=== PATIENT | male | born 1980 | race Caucasian/White ===

== ENCOUNTER 2019-12-26 08:40 | Emergency (ER) | payer MEDICARE, MEDICAID, SELFPAY ==
--- NOTE | ~2019-12-26 | XR_ITS ---
EXAMINATION: XR abdomen/kub 1V INDICATION: Abdominal pain, unable to urinate TECHNIQUE: Supine views of the abdomen were obtained on 2 radiographs. COMPARISON: None FINDINGS: The bowel gas pattern is normal. There are no dilated loops of bowel. The visualized osseou s structures are unremarkable. IMPRESSION: 1. No radiographic correlate for the patient's symptoms. Reviewed, dictated and finalized at location B.
[2019-12-26 09:02] VITALS: BP 143/80; PULSE 110; RESP 18; TEMP 36.1; O2SAT 99
--- NOTE | 2019-12-26 09:15 | ED.GENADULT ---
HPI - General Adult General Chief complaint: Urogenital-Male Stated complaint: burning/urinating Time Seen by Provider: 12/26/19 09:08 Source: patient, family (Family friend) and RN notes reviewed Mode of arrival: ambulatory Limitations: altered mental status History of Present Illness HPI narrative: 39-year-old male presents with complaints of dysuria and anuria for the past 18 hours. Karsten says he has not urinated since 15:00 on 12/25/19 and it was a dark tea color with a very slow stream. Dysuria consist of burning, decrease urine, and pain.? No treatment.? Denies fever or chills.? Denies nausea, vomiting, and abdominal pain.? No significant abdominal pain.? No genital discharge.? No concerns for STDs. Karsten denies being sexual active. No flank pain.? Exacerbating factors in ability to urinate and paplation of suprapubic and LT testicle.? Denies hematuria or genital bleeding.? Tolerating liquids well.? Remains active. Some parts of this dictation were generated by voice recognition software and may contain typographical and/or grammatical inaccuracies. Related Data Home Medications Medication Instructions Recorded Confirmed No Home Medications 12/26/19 12/26/19 Allergies Allergy/AdvReac Type Severity Reaction Status Date / Time nickel Allergy Rash Verified 12/26/19 09:16 Review of Systems Review of Systems: Narrative: CONSTITUTIONAL: Denies fever, chills, sweats. EYES: Denies visual changes, redness, discharge. ENT: Denies rhinorrhea, congestion, sore throat, otalgia. CARDIOVASCULAR: Denies chest pain, palpitations, edema. RESPIRATORY: Denies dyspnea, wheezing, cough GASTROINTESTINAL: Complains of suprapubic abdominal pain. Denies nausea, vomiting, diarrhea. GENITOURINARY: Complains of anuria and dysuria (burning, small amount, and urgency). Denies hematuria, abnormal discharge. SKIN: Denies rash or itching. MUSCULOSKELETAL: Denies acute back pain, joint pain, or myalgia. NEUROLOGIC: Denies numbness or focal weakness. PSYCHIATRIC: Denies anxiety or depression. All other systems reviewed are negative, except as documented in HPI and below. [facility] Past Medical History Medical History (Updated 12/26/19 @ 10:06 by ABBIE Aguero) No significant past medical history Surgical History Surgical History (Updated 12/26/19 @ 09:41 by ABBIE Aguero) History of shoulder surgery Right Family History Family History Father No problems noted. Mother No problems noted. Other Family history of alcoholism Family history of arthritis Hypertension Social History Social History (Updated 12/26/19 @ 10:05 by ABBIE Aguero) Smoking status: Never smoker Second hand tobacco smoke exposure: No Alcohol intake: current Substance use: never Gender identity (if verbalized by the patient): Male Comments At time of signature, agree with nurse past medical, surgical, social, and family history.? There is no relevant family history pertinent to the presenting complaint. Exam Narrative: Exam Narrative: GENERAL: This is a well-nourished, well-developed patient, in no apparent distress.? Talks in full sentences and ambulates with steady gait without dyspnea. HEAD: normocephalic, atraumatic. EYES: PERRL. Sclera clear/white. Vision is grossly intact. CARDIOVASCULAR: Regular rate and rhythm without murmurs, gallops, or rubs. RESPIRATORY: Clear to auscultation. Breath sounds equal bilaterally. No wheezes, rales, or rhonchi.? GASTROINTESTINAL: Abdomen soft, mild-moderate tenderness to suprapubic area, with mild bladder distended. Bowel sounds are active. No hepato-splenomegaly, or palpable masses. No guarding. GENITOURINARY: LT testicle lower than RT one, moderate tenderness on palpation and manipulation. Male genitalia normal without lesions. No discharge noted. Scrotum with no masses, swelling, dis
--- NOTE | 2019-12-26 09:16 | PC.NURSE ---
0908- Pt unable to produce urine sample
--- NOTE | 2019-12-26 09:30 | PC.NURSE ---
0930- Pt unable to provide specimen. Urine order canceled.
== END 2019-12-26 09:35 | disposition short-term general hospital (02) ==
PROVIDERS: Emergency Provider Nurse Practitioner Family
DX: R33.9 Retention of urine, unspecified (principal)
CPT/HCPCS: 74018; 99213; G0463

== ENCOUNTER 2019-12-26 10:00 | Emergency (ER) | payer MEDICARE, MEDICAID, SELFPAY ==
--- NOTE | ~2019-12-26 | US_ITS ---
EXAMINATION: US scrotum doppler DATE: 12/26/2019 11:17 INDICATION: Left testicular pain TECHNIQUE: Testicular sonogram utilizing grayscale and Doppler COMPARISON: None. FINDINGS: The right testis measures 4.3 x 1.9 x 3.1 cm. The left testis measures 4.6 x 2.1 x 3.1 cm. There is normal vascular flow to both testes. The right epididymis contains a 3 mm cyst or spermatoce le. The left epididymis is normal with normal vascular flow. There is no varicocele or hydrocele. IMPRESSION: 1. No sonographic correlate for the patient's symptoms. Reviewed, dictated and finalized at location B.
--- NOTE | 2019-12-26 10:08 | ED.MALEGU ---
HPI - Male Genitourinary General Chief complaint: Urogenital-Male Stated complaint: testicle swelling Time Seen by Provider: 12/26/19 10:08 History of Present Illness HPI Narrative: 39 yo male with h/o intellectual disability present c/o urianry difficulty since last night. When he urinated last night it was reportedly brown in color and burned. He has felt the urge to go since that time, but has not been able to produce any more urine. He does report some abdominal discomfort for the past few days with decreased appetite. He was seen at urgent care and they were concerned about tenderness in the left testicle, so they sent him here for further evaluation. History limited by intellectual disability. Related Data Allergies Allergy/AdvReac Type Severity Reaction Status Date / Time nickel Allergy Rash Verified 12/26/19 10:14 Review of Systems Review of Systems: All systems reviewed & are unremarkable except as noted in HPI and below Constitutional: Constitutional: Denies body ache(s) Eyes: Eyes: Reports no additional eye complaints ENT: Reports system reviewed and no additional complaints, except as documented Cardiovascular: Cardiovascular: Reports no additional cardiovascular complaints Respiratory: Respiratory: Reports no additional respiratory complaints Gastrointestinal: Gastrointestinal: Reports abdominal pain Genitourinary: Genitourinary: Reports oliguria, Denies penile discharge and Reports testicular pain Musculoskeletal: Musculoskeletal: Reports no additional musculoskeletal complaints Neurologic: Reports system reviewed and no additional complaints, except as documented PMFSH Past Medical History Medical History No significant past medical history Surgical History Surgical History History of shoulder surgery Right Family History Family History (Updated 12/26/19 @ 10:06 by ABBIE Aguero) Father No problems noted. Mother No problems noted. Other Family history of alcoholism Family history of arthritis Hypertension Social History Social History Smoking status: Never smoker Second hand tobacco smoke exposure: No Alcohol intake: current Substance use: never Gender identity (if verbalized by the patient): Male Exam Const: General: cooperative and alert; No acute distress Nutritional Appearance: well nourished HENMT: Face and sinus: dry mucous membranes Teeth and gingiva: other (endentulous) Resp: Effort & Inspection: normal respiratory effort Auscultation: clear to auscultation bilaterally Cardio: Rate: regular rate and bradycardic GI: GI Palp: No abdominal tenderness : Male General Exam: Yes normal external exam Scrotum: no scrotal swelling Testes: testicular tenderness on the left (mild) Skin: General skin exam: normal color Neuro: General: patient oriented x3 Speech: normal speech Extrem: General: normal to inspection Course Vital Signs Vital signs: Vital Signs Temperature 36.7 C 12/26/19 10:09 Pulse Rate 84 12/26/19 10:09 Respiratory Rate 18 12/26/19 10:09 Blood Pressure 137/86 12/26/19 10:09 Pulse Oximetry 98 12/26/19 10:09 Temperature 36.7 C 12/26/19 10:09 Pulse Rate 84 12/26/19 10:09 Respiratory Rate 18 12/26/19 10:09 Blood Pressure 137/86 12/26/19 10:09 Pulse Oximetry 98 12/26/19 10:09 MDM - Male Genitourinary MDM Narrative Medical decision making narrative: No abnormalities seen on US. UA does not clearly indicate UTI, but he does have significant bacteria on a cathed specimen and he continues to have burning with urination. I will treat this as a UTI and have him follow-up for ongoing symptoms. Differential Diagnosis Differential diagnosis: Likely urinary tract infection, epididymitis and
[2019-12-26 10:09] VITALS: BP 137/86; PULSE 84; RESP 18; TEMP 36.7; O2SAT 98
--- NOTE | 2019-12-26 10:30 | PC.NURSE ---
Pt's bladder scanned for urine prior to straight cath, reports >350cc x 3 scans.
[2019-12-26] MEDS: SODIUM CHLORIDE 0.9% IV 1,000 ML 999 ML IV CONT ×2 (10:51→12:15)
[2019-12-26 10:55] LABS: Basophils Absolute Auto 0.1 K/mm3 (0.0-0.1); Basophils Percent Auto 0.5 % (0.2-1.2); Eosinophils Absolute Auto 0.2 K/mm3 (0-0.3); Eosinophils Percent Auto 1.7 % (0-4.4); Hematocrit 45.9 % (42.0-52.0); Hemoglobin 15.6 g/dL (14.0-18.0); Immature Granulocyte Absolute 0.06 K/mm3 (0.00-0.031); Immature Granulocyte Percent A 0.5 % (0-0.5); Lymphocytes Percent Auto 10.5 % (18.3-44.2); Mean Corpuscular Hemoglobin 29.4 pg (26-34); Mean Corpuscular Volume 86.4 fl (80-100); Mean Platelet Volume 10.6 fl (7.4-10.4); Monocytes Absolute Auto 0.9 K/mm3 (0.1-0.6); Monocytes Percent Auto 8.2 % (2.6-8.5); Neutrophils Percent Auto 78.6 % (45.5-73.1); Platelet Count Result 205 k/mm3 (150-375); Red Blood Count 5.31 M/mm3 (4.6-6.20); Red Cell Distribution Width 12.6 % (11.5-14.5); White Blood Count 11.4 K/mm3 (4.5-10.0)
--- NOTE | 2019-12-26 10:55 | PC.NURSE ---
Pt to ultrasound via stretcher.
[2019-12-26 10:57] LABS: Appearance Urine Cloudy (Clear); Bilirubin Urine Negative (Negative); Blood Urine Negative (Negative); Color Urine Yellow (Yellow); Glucose Urine UA Negative (Negative); Ketones Urine 1+ mg/dL (Negative); Leukocyte Esterase Ur Negative LEU/UL (Negative); Nitrate Urine Negative (Negative); Protein Urine 1+ mg/dL (Negative); Specific Grav Ur >= 1.030 (1.001-1.035)
[2019-12-26 11:01] LABS: Add Urine Microscopic? YES; Amorphous Sediment Urine Moderate; Bacteria Urine 1+ /hpf; Mucus Urine Rare /lpf; RBC Urine 0-2 /hpf (0-2); Squamous Epithelial Cell Urine Rare /hpf (Few); WBC Urine 0-3 /hpf
[2019-12-26 11:12] LABS: Alanine Aminotransferase 14 U/L (4-50); Albumin Level 4.3 g/dL (3.5-5.1); Alkaline Phosphatase 49 U/L (38-126); Aspartate Amino Transferase 20 U/L (17-59); Bilirubin,Total 0.7 mg/dL (0.2-1.3); Blood Urea Nitrogen 10 mg/dL (9-20); Calcium 9.3 mg/dL (8.4-10.2); Carbon Dioxide 25 mmol/L (22-30); Chloride 107 mmol/L (98-107); Estimated CRCL calculation 96 ml/min; Estimated Glomerular Filt Rate > 60; Glucose 91 mg/dL (75-110); Potassium 3.8 mmol/L (3.4-5.0); Sodium 138 mmol/L (137-145)
--- NOTE | 2019-12-26 11:33 | PC.NURSE ---
Report to GHULAM Donato, to continue care.
[2019-12-26] MEDS: PHENAZOPYRIDINE HCL 100 MG TABLET 200 MG PO (12:14)
[2019-12-26 14:23] VITALS: BP 129/79; PULSE 81; RESP 17; O2SAT 99
--- NOTE | 2020-01-04 12:02 | PC.NURSE ---
LATE ENTRY This note is being entered to document information to the patient's record. The following information was omitted on [12/26/19], by [Carlos Delatorre]. ns start 1215 end 1310 Levoflaxin start 1321 end 1458
== END 2019-12-26 14:24 | disposition home or self-care (01) ==
PROVIDERS: Emergency Provider Emergency Medicine
DX: N39.0 Urinary tract infection, site not specified (principal); R33.9 Retention of urine, unspecified; N50.812 Left testicular pain
CPT/HCPCS: 36415; 51701; 74018; 76870; 80053; 81001; 85025; 93976; 96361; 96365; 99284; A9270; J1956; J7030

== ENCOUNTER 2020-04-27 19:10 | Emergency (ER) | payer MEDICARE, MEDICAID, SELFPAY ==
[2020-04-27 19:13] VITALS: BP 117/71; PULSE 93; RESP 20; TEMP 37.1; O2SAT 100
--- NOTE | 2020-04-27 19:43 | ED.ABDPAIN ---
HPI - Abdominal Pain General Chief Complaint: Abdominal Pain Stated Complaint: abd pain Time Seen by Provider: 04/27/20 19:36 Source: patient History of Present Illness HPI narrative: Patient complaining of a lump at the right lower abdomen started 2 days ago. Patient denies any fever, chills, nausea, vomiting. Related Data Allergies Allergy/AdvReac Type Severity Reaction Status Date / Time nickel Allergy Rash Verified 12/26/19 10:14 Review of Systems Review of Systems: Narrative: CONSTITUTIONAL: Denies fever, chills, or sweats. EYES: Denies visual changes, redness, or discharge. ENT: Denies rhinorrhea, congestion, sore throat, or otalgia. CARDIOVASCULAR: Denies chest pain, palpitations, or edema. RESPIRATORY: Denies cough or dyspnea. GASTROINTESTINAL: Denies abdominal pain, nausea, vomiting, or diarrhea. GENITOURINARY: Denies dysuria or hematuria. SKIN: Denies rash or itching. MUSCULOSKELETAL: Denies back pain, joint pain, or myalgia. NEUROLOGIC: Denies headache, numbness, or weakness. PSYCHIATRIC: Denies anxiety or depression. PMFSH Past Medical History Medical History No significant past medical history Surgical History Surgical History History of shoulder surgery Right Family History Family History Father No problems noted. Mother No problems noted. Other Family history of alcoholism Family history of arthritis Hypertension Social History Social History Smoking status: Never smoker Second hand tobacco smoke exposure: No Alcohol intake: current Substance use: never Gender identity (if verbalized by the patient): Male Exam Narrative: Exam Narrative: General appearance: Well-developed, well-nourished Skin: Normal color. An abscess-like lesion 4 x 3 cm at the right lower abdomen, erythematous, diffusely tender, positive fluctuation Head: Normocephalic, nontraumatic Eyes: Clear conjunctiva ENT: Oropharynx normal, ears normal, nose normal Neck: Supple, nontender Chest and respiratory: Airway patent, no respiratory distress, no accessory muscle use Heart: Regular rate/rhythm Abdomen: Soft, nontender, no organomegaly, quiet bowel sounds Vascular: Normal peripheral pulses, normal capillary refill. Musculoskeletal: Normal range of motion, nontender back Neurologic: Alert and oriented ?3, STORE MANAGER is normal as tested, no gross motor deficit Procedures Abscess I/D Right lower abdomen: Date of Incision: 04/27/20 Time of Incision: 20:16 Side (if applicable): right Local Anesthetic: lidocaine 1% and with epi Amount of anesthesia used (mL): 5 Technique: incised with #11 blade and probed loculations Amount of fluid expressed (mL): 25 Irrigation: Yes Packing used?: iodoform I&D Results: Pus Complications: pain Course Course Emergency Course: Stable Vital Signs Vital signs: Vital Signs Temperature 37.1 C 04/27/20 19:13 Pulse Rate 93 04/27/20 19:13 Respiratory Rate 04/27/20 19:13 Blood Pressure 117/71 04/27/20 19:13 Pulse Oximetry 100 04/27/20 19:13 Temperature 37.1 C 04/27/20 19:13 Pulse Rate 93 04/27/20 19:13 Respiratory Rate 04/27/20 19:13 Blood Pressure 117/71 04/27/20 19:13 Pulse Oximetry 100 04/27/20 19:13 MDM - Abdominal Pain MDM Narrative Medical decision making narrative: Right lower abdomen abscess. The plan is incision and drainage. Critical Care Time
[2020-04-27 20:35] VITALS: BP 125/71; PULSE 96; RESP 18; O2SAT 98
== END 2020-04-27 20:37 | disposition home or self-care (01) ==
PROVIDERS: Emergency Provider Emergency Medicine
DX: L02.211 Cutaneous abscess of abdominal wall (principal)
CPT/HCPCS: 10061; 87070; 87205; 99283

== ENCOUNTER 2020-08-11 15:34 | Emergency (ER) | payer MEDICARE, MEDICAID, SELFPAY ==
--- NOTE | ~2020-08-11 | CT_ITS ---
EXAMINATION: CT abdomen pelvis w con DATE: 08/11/2020 18:01 INDICATION: Low abdominal pain. TECHNIQUE: Computed tomography (CT) of the abdomen and pelvis was performed with 100 mL Omnipaque 350 intravenous contrast. Automated exposure control and iterative reconstruction technique were employe d. The dose-length product was 179.14 mGy-cm. COMPARISON: None. FINDINGS: The visualized portions of the lung bases are clear without pneumonia or pleural effusion. The heart size is normal. No pericardial effusion. The liver, gallbladder, spleen, pancreas, adrenal glands, and kidneys are normal. There are no dilated loops of bowel. The appendix is normal. There ar e no pathologically enlarged lymph nodes. There is no free intraperitoneal fluid. The bladder is deco mpressed by a Maria catheter. There is mild lumbar spondylosis. IMPRESSION: 1. No etiology for the patient's symptoms. Reviewed, dictated and finalized at location A. TTING MANAGER
[2020-08-11 15:36] VITALS: BP 145/91; PULSE 111; RESP 18; TEMP 36.3; O2SAT 97
[2020-08-11 16:01] LABS: Basophils Absolute Auto 0.1 K/mm3 (0.0-0.1); Basophils Percent Auto 0.6 % (0.2-1.2); Eosinophils Absolute Auto 0.2 K/mm3 (0-0.3); Eosinophils Percent Auto 1.7 % (0-4.4); Hematocrit 46.9 % (42.0-52.0); Hemoglobin 16.1 g/dL (14.0-18.0); Immature Granulocyte Absolute 0.05 K/mm3 (0.00-0.031); Immature Granulocyte Percent A 0.5 % (0-0.5); Lymphocytes Absolute Auto 2.05 K/mm3 (0.9-3.2); Lymphocytes Percent Auto 18.6 % (18.3-44.2); Mean Corpuscular HGB Conc 34.3 g/dl (32-36); Mean Corpuscular Hemoglobin 30.6 pg (26-34); Mean Corpuscular Volume 89.2 fl (80-100); Mean Platelet Volume 9.9 fl (7.4-10.4); Monocytes Absolute Auto 1.1 K/mm3 (0.1-0.6); Monocytes Percent Auto 9.9 % (2.6-8.5); Neutrophils Absolute Auto 7.6 K/mm3 (1.3-6.7); Neutrophils Percent Auto 68.7 % (45.5-73.1); Platelet Count Result 257 k/mm3 (150-375); Red Blood Count 5.26 M/mm3 (4.6-6.20); Red Cell Distribution Width 12.8 % (11.5-14.5)
[2020-08-11 16:11] LABS: Alanine Aminotransferase 18 U/L (4-50); Albumin Level 4.4 g/dL (3.5-5.1); Alkaline Phosphatase 62 U/L (38-126); Anion Gap 7 mmol/L (8-16); Aspartate Amino Transferase 23 U/L (17-59); Bilirubin,Total 0.4 mg/dL (0.2-1.3); Blood Urea Nitrogen 7 mg/dL (9-20); Calcium 9.4 mg/dL (8.4-10.2); Carbon Dioxide 25 mmol/L (22-30); Chloride 106 mmol/L (98-107); Estimated CRCL calculation 87 ml/min; Estimated Glomerular Filt Rate > 60; Glucose 109 mg/dL (75-110); Lipase 54 U/L (23-300); Potassium 3.9 mmol/L (3.4-5.0); Sodium 138 mmol/L (137-145)
[2020-08-11 17:38] LABS: Add Urine Microscopic? NO; Appearance Urine Clear (Clear); Bilirubin Urine Negative (Negative); Blood Urine Negative (Negative); Color Urine Yellow (Yellow); Glucose Urine UA Negative (Negative); Ketones Urine Negative (Negative); Leukocyte Esterase Ur Negative LEU/UL (Negative); Nitrate Urine Negative (Negative); Protein Urine Negative (Negative); Specific Grav Ur 1.015 (1.001-1.035); Urobilinogen Urine Negative mg/dL (<2.0)
--- NOTE | 2020-08-11 17:57 | ED.ABDPAIN ---
HPI - Abdominal Pain General Chief Complaint: Abdominal Pain Stated Complaint: abdominal pain/difficulty urinating Time Seen by Provider: 08/11/20 16:21 Source: patient Limitations: no limitations History of Present Illness HPI narrative: 39 years old white male presents with lower abdominal pain started yesterday associated with trouble to urinate. Patient reports last urination was yesterday. Patient denies any fever, chills, nausea, vomiting, diarrhea, constipation, exposure to anybody known having COVID-19. Patient also denies any respiratory symptoms. Patient wearing depends Related Data Home Medications Medication Instructions Recorded Confirmed No Home Medications 08/11/20 08/11/20 Allergies Allergy/AdvReac Type Severity Reaction Status Date / Time nickel Allergy Rash Verified 08/11/20 15:40 Review of Systems Review of Systems: Narrative: CONSTITUTIONAL: Denies fever, chills, or sweats. EYES: Denies visual changes, redness, or discharge. ENT: Denies rhinorrhea, congestion, sore throat, or otalgia. CARDIOVASCULAR: Denies chest pain, palpitations, or edema. RESPIRATORY: Denies cough or dyspnea. GASTROINTESTINAL: Complaining of abdominal pain and difficulty urinating GENITOURINARY: Denies dysuria or hematuria. SKIN: Denies rash or itching. MUSCULOSKELETAL: Denies back pain, joint pain, or myalgia. NEUROLOGIC: Denies headache, numbness, or weakness. PSYCHIATRIC: Denies anxiety or depression. [facility] Past Medical History Medical History (Updated 08/11/20 @ 18:50 by Papito August MD) No significant past medical history Surgical History Surgical History History of abdominal abscess I & D of Right Lower Abdomen. 04/27/2020 History of shoulder surgery Right Family History Family History Father No problems noted. Mother No problems noted. Other Family history of alcoholism Family history of arthritis Hypertension Social History Social History Smoking status: Current every day smoker Tobacco type: cigarettes Second hand tobacco smoke exposure: No Alcohol intake: current Substance use: never Gender identity (if verbalized by the patient): Male Exam Narrative: Exam Narrative: General appearance: Well-developed, well-nourished Skin: Normal color, chronic eczematous changes of the lower abdomen Head: Normocephalic, nontraumatic Eyes: Clear conjunctiva ENT: Oropharynx normal, ears normal, nose normal Neck: Supple, nontender Chest and respiratory: Airway patent, no respiratory distress, no accessory muscle use Heart: Regular rate/rhythm Abdomen: Soft, diffuse tenderness lower abdomen, no organomegaly, quiet bowel sounds Vascular: Normal peripheral pulses, normal capillary refill. Musculoskeletal: Normal range of motion, nontender back Neurologic: Alert and oriented ?3, Course Course Emergency Course: Stable Vital Signs Vital signs: Vital Signs Temperature 36.3 C L 08/11/20 15:36 Pulse Rate 111 H 08/11/20 15:36 Respiratory Rate 18 08/11/20 15:36 Blood Pressure 145/91 H 08/11/20 15:36 Pulse Oximetry 97 08/11/20 15:36 Temperature 36.3 C L 08/11/20 15:36 Pulse Rate 111 H 08/11/20 15:36 Respiratory Rate 18 08/11/20 15:36 Blood Pressure 145/91 H 08/11/20 15:36 Pulse Oximetry 97 08/11/20 15:36 MDM - Abdominal Pain MDM Narrative Medical decision making narrative: Lower abdominal pain, trouble urinating. Labs, IV fluid, CT abdomen and pelvis with IV contrast, ordered. Further plan to
[2020-08-11 18:45] VITALS: BP 150/89; PULSE 90; RESP 20; O2SAT 98
--- NOTE | 2020-08-11 19:01 | PC.NURSE ---
pt refuses to keep indwelling canales. wants canales d/c prior to d/c to home. notified.
== END 2020-08-11 19:08 | disposition home or self-care (01) ==
PROVIDERS: Emergency Medicine; Emergency Provider Emergency Medicine
DX: R33.9 Retention of urine, unspecified (principal); F17.210 Nicotine dependence, cigarettes, uncomplicated
CPT/HCPCS: 36415; 51702; 74177; 80053; 81003; 83690; 85025; 99284; Q9967

== ENCOUNTER 2020-09-20 22:44 | Emergency (ER) | payer MEDICARE, MEDICAID, SELFPAY ==
--- NOTE | ~2020-09-20 | CT_ITS ---
EXAMINATION: CT abdomen pelvis wo con DATE: 09/21/2020 01:13 INDICATION: Lower abdominal pain TECHNIQUE: Computed tomography (CT) of the abdomen and pelvis was performed without intravenous contr ast. The dose-length product was 170.91 mGy-cm. Automated exposure control and iterative reconstructi on technique were employed. COMPARISON: CT dated 08/11/2020. FINDINGS: Heart size is normal. No significant pleural or pericardial effusion. Moderate gas througho ut the colon. No significant small bowel dilation. No significant vascular abnormality. No lymphadeno yovani. Bladder is underdistended, although there is possible mild bladder wall thickening. The liver, spleen, pancreas, adrenal glands and kidneys are unremarkable. No free air or free fluid. No lymphadenopathy. Mild levocurvature of the lumbar spine. IMPRESSION: 1. Possible mild thickening of the bladder wall versus underdistention. Consider cystitis in the appr opriate clinical setting. Reviewed, dictated and finalized at location A. TANK TENDER IMPRESSION: 1. Possible mild thickening of the bladder wall versus underdistention. Conside r cystitis in the appropriate clinical setting.
[2020-09-20 22:49] VITALS: BP 148/91; PULSE 98; RESP 18; TEMP 36.7; O2SAT 98
[2020-09-20 23:56] LABS: Basophils Absolute Auto 0.1 K/mm3 (0.0-0.1); Basophils Percent Auto 0.6 % (0.2-1.2); Eosinophils Absolute Auto 0.2 K/mm3 (0-0.3); Eosinophils Percent Auto 1.6 % (0-4.4); Hemoglobin 16.2 g/dL (14.0-18.0); Immature Granulocyte Absolute 0.05 K/mm3 (0.00-0.031); Immature Granulocyte Percent A 0.4 % (0-0.5); Lymphocytes Absolute Auto 1.95 K/mm3 (0.9-3.2); Lymphocytes Percent Auto 16.3 % (18.3-44.2); Mean Corpuscular HGB Conc 34.5 g/dl (32-36); Mean Corpuscular Hemoglobin 29.9 pg (26-34); Mean Corpuscular Volume 86.7 fl (80-100); Mean Platelet Volume 9.7 fl (7.4-10.4); Monocytes Absolute Auto 1.3 K/mm3 (0.1-0.6); Monocytes Percent Auto 10.7 % (2.6-8.5); Neutrophils Absolute Auto 8.5 K/mm3 (1.3-6.7); Neutrophils Percent Auto 70.4 % (45.5-73.1); Platelet Count Result 243 k/mm3 (150-375); Red Blood Count 5.42 M/mm3 (4.6-6.20); Red Cell Distribution Width 12.6 % (11.5-14.5)
[2020-09-21 00:10] LABS: Anion Gap 11 mmol/L (8-16); Blood Urea Nitrogen 13 mg/dL (9-20); Calcium 9.7 mg/dL (8.4-10.2); Carbon Dioxide 24 mmol/L (22-30); Chloride 103 mmol/L (98-107); Estimated CRCL calculation 91 ml/min; Estimated Glomerular Filt Rate > 60; Glucose 111 mg/dL (75-110); Potassium 3.9 mmol/L (3.4-5.0); Sodium 138 mmol/L (137-145)
[2020-09-21 00:55] LABS: Add Urine Microscopic? YES; Appearance Urine Clear (Clear); Bacteria Urine Trace /hpf; Bilirubin Urine Negative (Negative); Blood Urine Negative (Negative); Color Urine Yellow (Yellow); Glucose Urine UA Negative (Negative); Ketones Urine Trace mg/dL (Negative); Leukocyte Esterase Ur Negative LEU/UL (Negative); Mucus Urine Rare /lpf; Nitrate Urine Negative (Negative); Protein Urine 2+ mg/dL (Negative); Specific Grav Ur 1.029 (1.001-1.035); WBC Urine 0-3 /hpf
--- NOTE | 2020-09-21 01:40 | ED.GENADULT ---
HPI - General Adult General Chief complaint: Urogenital-Male Stated complaint: Testicle pain, urinary symptoms Time Seen by Provider: 09/20/20 23:38 Source: RN notes reviewed History of Present Illness HPI narrative: Patient presents emergency department from home for difficulty urinating. Patient states he has had difficulty urinating since yesterday. He states is associated with a burning sensation. Patient states it feels like fire ants start from the tip of his penis moved up into his lower abdomen. He denies any fevers or chills nausea vomiting diarrhea or any other symptoms. Patient states he has had problems with difficulty urinating before in the past patient states pain radiates into the penile region and scrotum but denies any testicular pain. Patient denies any recent sexual intercourse and denies risk of sexually-transmitted disease Related Data Allergies Allergy/AdvReac Type Severity Reaction Status Date / Time nickel Allergy Rash Verified 09/20/20 22:52 Review of Systems Review of Systems: Narrative: Gen.: Denies fevers or chills ENT: Denies congestion Respiratory: Denies shortness of breath or cough CV: Denies chest pain or palpitations GI: Denies abdominal pain nausea, emesis or diarrhea GI Musculoskeletal: Denies back pain or muscle pain Neuro: Denies numbness, tingling, weakness or focal weakness Skin: Denies rash Except as documented, all other systems reviewed and negative [facility] Past Medical History Medical History (Updated 09/21/20 @ 03:19 by Smith Tena DO) No significant past medical history Surgical History Surgical History History of abdominal abscess I & D of Right Lower Abdomen. 04/27/2020 History of shoulder surgery Right Family History Family History Father No problems noted. Mother No problems noted. Other Family history of alcoholism Family history of arthritis Hypertension Social History Social History Smoking status: Current every day smoker Tobacco type: cigarettes Second hand tobacco smoke exposure: No Alcohol intake: current Substance use: never Gender identity (if verbalized by the patient): Male Exam Narrative: Exam Narrative: APPEARANCE: No acute distress, nontoxic, resting in bed EYES: EOMI HEENT: Normocephalic, atraumatic, OMM RESPIRATORY: No respiratory distress Clear to auscultation bilaterally with no rhonchi wheezing or rales. CARDIOVASCULAR: Regular rate and rhythm without murmurs rubs or gallops. ABDOMINAL: Soft, nontender, nondistended, no rebound or guarding : Normal external exam there is a small sebaceous cyst at the base of the left penile shaft there is no swelling or erythema of the scrotum bilateral testicles are nontender to palpation no phimosis paraphimosis MUSCULOSKELETAl: Moves all extremities. No clubbing, cyanosis or edema. NEURO: Awake and alert. Following commands, speech normal, no focal deficits SKIN:: Warm, dry. The right lower abdomen has a erythematous rash with some healing scabbed over wounds as well as several small vesicles but does not cross the midline suspect component of shingles PSYCHIATRIC: Normal affect/mood, Course Course Emergency Course: Patient is straight cath in the emergency department with approximately 500 mL out. Discussed with patient the need for Maria catheter and the patient is refusing at this time. We did discuss the risks and benefits including bladder perforation cardiopulmonary arrest sepsis and patient continues to refuse refusal form signed out Reviewed old records the patient is had similar complaints before in the past has refused Maria catheter before in the past Discussed with patient results of workup and diagnosis. Discussed need for follow-up with primary care, proper use of m
[2020-09-21] MEDS: IBUPROFEN 600 MG TABLET PO (01:56)
[2020-09-21 04:00] VITALS: BP 126/69; PULSE 85; RESP 18; O2SAT 99
[2020-09-21] MEDS: valACYclovir HCL 500 MG TABLET 1000 MG PO (04:16)
== END 2020-09-21 04:21 | disposition home or self-care (01) ==
PROVIDERS: Emergency Provider Emergency Medicine; PCP Registered Nurse
DX: R33.9 Retention of urine, unspecified (principal); B01.9 Varicella without complication; F17.210 Nicotine dependence, cigarettes, uncomplicated
CPT/HCPCS: 36415; 74176; 80048; 81001; 85025; 99284; A9270

== ENCOUNTER 2021-04-13 20:57 | Emergency (ER) | payer MEDICARE, MEDICAID, SELFPAY ==
--- NOTE | ~2021-04-13 | CT_ITS ---
EXAMINATION: CT abdomen pelvis wo con DATE: 04/13/2021 23:23 INDICATION: Flank pain. Urinary retention. TECHNIQUE: Computed tomography (CT) of the abdomen and pelvis was performed without intravenous contr ast. Automated exposure control and iterative reconstruction technique were employed. The dose-length product was 158.80 mGy-cm. COMPARISON: 09/21/2020 FINDINGS: Lung bases are clear. No pericardial or pleural effusion. Liver, gallbladder, spleen, pancreas, bilat eral adrenal glands and kidneys are normal. No urolithiasis or hydronephrosis. Bowels including the a ppendix are normal. There is a Maria catheter in the bladder which demonstrates a moderately thickene d wall. No free intraperitoneal gas or fluid. No pathologically enlarged abdominal or pelvic lymphade nopathy. Transitional L5 segment, sacralized on the right with severely narrowed, likely developmenta lly underdeveloped L5-S1 disc space. IMPRESSION: 1. Again seen is diffuse moderate bladder wall thickening likely related to cystitis either acute or chronic. Correlate with urinalysis. Reviewed, dictated and finalized at location A. IMPRESSION: 1. Again seen is diffuse moderate bladder wall thickening likely related to cys titis either acute or chronic. Correlate with urinalysis.
[2021-04-13 21:49] VITALS: BP 155/100; PULSE 96; RESP 18; TEMP 36.6; O2SAT 96
[2021-04-13 22:24] LABS: Add Urine Microscopic? YES; Appearance Urine Clear (Clear); Bacteria Urine Trace /hpf; Bilirubin Urine Negative (Negative); Blood Urine Negative (Negative); Color Urine Yellow (Yellow); Glucose Urine UA Negative (Negative); Ketones Urine Negative (Negative); Leukocyte Esterase Ur Negative LEU/UL (Negative); Mucus Urine Rare /lpf; Nitrate Urine Negative (Negative); Protein Urine 1+ mg/dL (Negative); RBC Urine 0-2 /hpf (0-2); Specific Grav Ur 1.015 (1.001-1.035); Urobilinogen Urine Negative mg/dL (<2.0); WBC Urine 0-3 /hpf
--- NOTE | 2021-04-13 22:33 | ED.GENADULT ---
HPI - General Adult General Chief complaint: Urogenital-Male Stated complaint: urinary retention x 12 hours Time Seen by Provider: 04/13/21 22:14 History of Present Illness HPI narrative: Patient 40-year-old gentleman who presents the emergency department with chief complaint of urinary retention. Patient reports that he had noticed yesterday that he had decreased urine output and he has diaper the patient states that today he attempted to drink beer and smoke weed all day and then noticed that he was not able to urinate. Patient came to the emergency department saying that he felt pressure in the suprapubic region. The patient was found to have urinary retention on bladder scanner and a Maria catheter was placed. The patient reports he feels much better now Related Data Home Medications Medication Instructions Recorded Confirmed No Home Medications 04/13/21 04/13/21 Allergies Allergy/AdvReac Type Severity Reaction Status Date / Time nickel Allergy Rash Verified 04/13/21 22:34 Review of Systems Review of Systems: A 10 system review of systems was completed on the patient and is negative except for what is stated in the HPI. Nursing and ancillary documentation was reviewed. [facility] Past Medical History Medical History (Updated 04/13/21 @ 22:37 by Kit Alvarez MD) No significant past medical history Surgical History Surgical History History of abdominal abscess I & D of Right Lower Abdomen. 04/27/2020 History of shoulder surgery Right Family History Family History Father No problems noted. Mother No problems noted. Other Family history of alcoholism Family history of arthritis Hypertension Social History Social History Smoking status: Current every day smoker Tobacco type: cigarettes Second hand tobacco smoke exposure: No Alcohol intake: current Substance use: never Gender identity (if verbalized by the patient): Male Sexual Orientation (if Verbalized by the Patient): Straight or Heterosexual Exam Narrative: GENERAL: Well-appearing, well-nourished, and in no acute distress. HEAD: Normocephalic, atraumatic. EYES: PERRLA and EOMI. ENT: Nares clear, no rhinorrhea or epistaxis. Mucous membranes moist. NECK: Supple. CHEST: Clear to auscultation. No respiratory distress. HEART: Regular rate and rhythm. No murmur heard. Normal peripheral pulses. ABDOMEN: Soft, nontender, nondistended, normal active bowel sounds. EXTREMITIES: Normal range of motion. No edema. SKIN: Warm, dry, no rash. NEURO: No focal deficits. Alert and oriented x3. PSYCH: Normal mood and affect. Course Vital Signs Vital signs: Vital Signs Temperature 36.6 C 04/13/21 21:49 Pulse Rate 96 04/13/21 21:49 Respiratory Rate 18 04/13/21 21:49 Blood Pressure 155/100 H 04/13/21 21:49 Pulse Oximetry 96 04/13/21 21:49 Temperature 36.6 C 04/13/21 21:49 Pulse Rate 96 04/13/21 21:49 Respiratory Rate 18 04/13/21 21:49 Blood Pressure 155/100 H 04/13/21 21:49 Pulse Oximetry 96 04/13/21 21:49 Medical Decision Making Vital Signs Vital Signs: Vital Signs Temperature 36.6 C 04/13/21 21:49 Pulse Rate 96 04/13/21 21:49 Respiratory Rate 18 04/13/21 21:49 Blood Pressure 155/100 H 04/13/21 21:49 Pulse Oximetry 96 04/13/21 21:49 Temperature 36.6 C 04/13/21 21:49 Pulse Rate 96 04/13/21 21:49 Respiratory Rate 18 04/13/21 21:49 Blood Pressure 155/100 H 04/13/21 21:49 Pulse Oximetry 96 04/13/21 21:49 Lab Data Labs: Lab Results 04/13/21 Range/Units 22:11 Urine Color Yellow (Yellow) Urine Appearance Clear (Clear) Urine pH 6.0 (5.0-9.0) Ur Specific [place] 1.015 (1.001-1.035) Urine Protein 1+ H (Ne
[2021-04-14 00:40] VITALS: BP 141/91; PULSE 92; RESP 16; O2SAT 100
== END 2021-04-14 00:41 | disposition home or self-care (01) ==
PROVIDERS: Emergency Medicine; Emergency Provider Emergency Medicine; PCP Registered Nurse
DX: R33.9 Retention of urine, unspecified (principal); F17.210 Nicotine dependence, cigarettes, uncomplicated
CPT/HCPCS: 51702; 74176; 81001; 99284

== ENCOUNTER 2022-09-01 11:48 | Emergency (ER) | payer MEDICARE, MEDICAID, SELFPAY ==
[2022-09-01 12:25] VITALS: BP 122/72; PULSE 103; RESP 16; TEMP 36.7; O2SAT 98
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
[2022-09-01 17:28] LABS: Add Urine Microscopic? NO; Appearance Urine Clear (Clear); Bilirubin Urine Negative (Negative); Blood Urine Negative (Negative); Color Urine Light Yellow (Yellow); Glucose Urine UA Negative (Negative); Ketones Urine Negative (Negative); Leukocyte Esterase Ur Negative LEU/UL (Negative); Nitrate Urine Negative (Negative); Protein Urine Negative (Negative); Urobilinogen Urine 0.2 mg/dL (<2.0)
[2022-09-01 17:35] LABS: RBC Urine 0-2 /hpf (0-2); WBC Urine 0-3 /hpf
[2022-09-01 17:46] LABS: Basophils Absolute Auto 0.1 K/mm3 (0.0-0.1); Basophils Percent Auto 0.8 % (0.2-1.2); Eosinophils Absolute Auto 0.1 K/mm3 (0-0.3); Hematocrit 49.9 % (42.0-52.0); Hemoglobin 16.7 g/dL (14.0-18.0); Immature Granulocyte Absolute 0.04 K/mm3 (0.00-0.031); Immature Granulocyte Percent A 0.5 % (0-0.5); Lymphocytes Absolute Auto 1.47 K/mm3 (0.9-3.2); Lymphocytes Percent Auto 17.8 % (18.3-44.2); Mean Corpuscular HGB Conc 33.5 g/dl (32-36); Mean Corpuscular Hemoglobin 30.5 pg (26-34); Mean Corpuscular Volume 91.2 fl (80-100); Mean Platelet Volume 9.6 fl (7.4-10.4); Monocytes Absolute Auto 0.7 K/mm3 (0.1-0.6); Monocytes Percent Auto 8.7 % (2.6-8.5); Neutrophils Absolute Auto 5.9 K/mm3 (1.3-6.7); Neutrophils Percent Auto 71.2 % (45.5-73.1); Platelet Count Result 221 k/mm3 (150-375); Red Blood Count 5.47 M/mm3 (4.6-6.20); Red Cell Distribution Width 12.6 % (11.5-14.5); White Blood Count 8.3 K/mm3 (4.5-10.0)
--- NOTE | 2022-09-01 17:55 | PC.NURSE ---
bladder scan 347ml, post void 50ml
[2022-09-01 17:58] LABS: Anion Gap 6 mmol/L (8-16); Blood Urea Nitrogen 8 mg/dL (9-20); Calcium 8.8 mg/dL (8.4-10.2); Carbon Dioxide 27 mmol/L (22-30); Chloride 107 mmol/L (98-107); Estimated Glomerular Filt Rate > 60; Glucose 103 mg/dL (65-110); Potassium 4.1 mmol/L (3.4-5.0); Sodium 140 mmol/L (137-145)
[2022-09-01 18:18] VITALS: BP 118/68; PULSE 76; RESP 16; TEMP 36.7; O2SAT 100
== END 2022-09-01 18:20 | disposition home or self-care (01) ==
PROVIDERS: Emergency Provider Emergency Medicine; PCP Registered Nurse
DX: R33.9 Retention of urine, unspecified (principal); Z87.820 Personal history of traumatic brain injury; F17.210 Nicotine dependence, cigarettes, uncomplicated
CPT/HCPCS: 36415; 80048; 81003; 85025; 99283

== ENCOUNTER 2023-10-12 10:25 | Emergency (ER) | payer MEDICARE, MEDICAID, SELFPAY ==
--- NOTE | ~2023-10-12 | XR_ITS ---
XR shoulder RT min 2V DATE: 10/12/2023 10:44 INDICATION: Fall last night on the right side. Right shoulder pain. TECHNIQUE: 4 views COMPARISON: 03/05/2023 right pre-reduction and post-reduction shoulder radiographs FINDINGS: There is probable postoperative change of the glenoid process of the scapula. There is mild glenohumeral joint space narrowing and mild humeral head spurring consistent with osteoarthritis. No fracture, dislocation, periosteal reaction or bone destruction. Degenerative disc disease and uncovertebral joint spurring is noted in the lower cervical spine. IMPRESSION: Right glenohumeral osteoarthritis Postoperative change of right glenoid process Reviewed, dictated and finalized at location L. UNT CLERK
--- NOTE | ~2023-10-12 | CT_ITS ---
EXAMINATION: CT brain wo con DATE: 10/12/2023 11:13 INDICATION: Head injury. TECHNIQUE: Computed tomography (CT) of the head was performed without intravenous contrast. The mA wa s adjusted according to patient size. Iterative reconstruction technique was employed. The dose-lengt h product was 605.33 mGy-cm. COMPARISON: None FINDINGS: There is no intracranial hemorrhage, acute infarction, or abnormal intracranial mass lesion . The ventricles are normal in size. There is mild mucosal thickening in the paranasal sinuses. The o rbits are normal. The mastoid air cells are normal. There is right periorbital soft tissue swelling. IMPRESSION: 1. Normal brain. Reviewed, dictated and finalized at location A. PAN FEEDER IMPRESSION: 1. Normal brain.
--- NOTE | ~2023-10-12 | CT_ITS ---
EXAMINATION: CT cervical spine wo con DATE: 10/12/2023 11:13 INDICATION: Head injury. TECHNIQUE: Computed tomography (CT) of the cervical spine was performed without intravenous contrast. Automated exposure control and iterative reconstruction technique were employed. The dose-length pro duct was 239.44 mGy-cm. COMPARISON: None FINDINGS: There is mild emphysema. There is mild scarring at the lung apices. Bone alignment is pineda l. Vertebral body heights are normal. There is mildly decreased disc height at C2-C3, C3-C4, and C4-C 5 and severely decreased disc height at C5-C6 and C6-C7. The osseous central spinal canal is developm entally small. There are bilateral ribs at C7. The following disc levels are specifically discussed: C2-C3: There is mild bilateral uncovertebral joint osteoarthritis. There is mild bilateral facet join t osteoarthritis. There is no neural foraminal stenosis. There is no central canal stenosis. C3-C4: There is mild bilateral uncovertebral joint osteoarthritis. There is moderate right and mild l eft facet joint osteoarthritis. There is mild left neural foraminal stenosis. There is mild central c anal stenosis. C4-C5: There is mild bilateral uncovertebral joint osteoarthritis. There is moderate right and mild l eft facet joint osteoarthritis. There is no neural foraminal stenosis. There is mild central canal st enosis. C5-C6: There is severe bilateral uncovertebral joint osteoarthritis. There is mild bilateral facet anusha int osteoarthritis. There is mild bilateral neural foraminal stenosis. There is severe central canal stenosis. C6-C7: There is severe bilateral uncovertebral joint osteoarthritis. There is mild bilateral facet anusha int osteoarthritis. There is mild bilateral neural foraminal stenosis. There is severe central canal stenosis. C7-T1: There is mild bilateral uncovertebral joint osteoarthritis. There is mild bilateral facet join t osteoarthritis. There is mild bilateral neural foraminal stenosis. There is no central canal stenos is. IMPRESSION: 1. No fracture. 2. Severe cervical spondylosis. Reviewed, dictated and finalized at location A. [employer]
[2023-10-12 10:27] VITALS: BP 123/89; PULSE 118; RESP 16; TEMP 36.8; O2SAT 98
[2023-10-12] MEDS: KETOROLAC (*BKC) 60 MG/2 ML VIAL IM (11:38)
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
== END 2023-10-12 12:20 | disposition home or self-care (01) ==
PROVIDERS: Emergency Provider Physician Assistant; PCP Registered Nurse
DX: S46.911A Strain of unspecified muscle, fascia and tendon at shoulder and upper arm level, right arm, initial encounter (principal); S05.11XA Contusion of eyeball and orbital tissues, right eye, initial encounter; F17.210 Nicotine dependence, cigarettes, uncomplicated; V19.88XA Pedal cyclist (driver) (passenger) injured in other specified transport accidents, initial encounter
CPT/HCPCS: 70450; 72125; 73030; 96372; 99284; J1885

== ENCOUNTER 2025-04-19 17:27 | Emergency (ER) | payer OTHER, SELFPAY ==
--- NOTE | ~2025-04-19 | CT_ITS ---
CLINICAL INDICATION: Palpable abnormality. COMPARISON: None. TECHNIQUE: Computed tomography (CT) of the pelvis was performed following the administration intraven ous contrast. The dose-length product was 186.03 mGy-cm. FINDINGS/OBSERVATIONS: Within the left perineum/upper scrotum is a rim-enhancing dense fluid collection measuring 3.7 x 1.7 x 3.3 cm (anterior to posterior x medial to lateral x cranial to caudal dimension). This area corresp onds to the palpable abnormality. Both testicles are within the scrotum. The bladder demonstrates mural thickening and is only minimally distended. Bowel loops are unremarkable. The prostate gland is hyperemic, but not enlarged. IMPRESSION: Left scrotal (likely) thick walled abscess measuring 3.7 cm in greatest dimension corresponding to th e area of palpable concern. Reviewed, dictated and finalized at location A. IMPRESSION: Left scrotal (likely) thick walled abscess measuring 3.7 cm in greatest dimensi on corresponding to the area of palpable concern.
[2025-04-19 17:53] VITALS: BP 132/98; PULSE 89; RESP 16; TEMP 36; O2SAT 99
--- NOTE | 2025-04-19 17:59 | ED.MALEGU ---
HPI - Male Genitourinary General Chief complaint: Urogenital-Male <Shanti Zhang PA-C - Last Filed: 04/19/25 18:00> Stated complaint: lump on groin <Shanti Zhang PA-C - Last Filed: 04/19/25 18:00> Time Seen by Provider: 04/19/25 19:48 <Shanti Zhang PA-C - Last Filed: 04/19/25 18:00> Focused HPI: 44-year-old male presents emergency department for lump to his left groin he noticed yesterday. He went to his PCP's office and was sent to the ED for further evaluation. He reports the lump is painful and worse with walking. Denies any drainage, dysuria, hematuria, abdominal pain, constipation, obstipation, penile discharge or concern for STDs. GENERAL: Well-appearing, well-nourished, and in no acute distress. HEAD: Normocephalic, atraumatic. CHEST: Clear to auscultation. ?No respiratory distress. : Chaperoned by GHULAM Prabhakar: Area fluctuation to the left inguinal fold extending into the scrotum with surrounding induration and erythema. No crepitus or spontaneous drainage. HEART: Regular rate and rhythm.? NEURO: ?Alert and oriented x3. Patient screened in triage and initial orders placed.? ?Additional care and disposition to be based upon?diagnostic testing and treatment. <Shanti Zhang PA-C - Last Filed: 04/19/25 18:00> History of Present Illness HPI Narrative: I agree with the assessment and documentation of Shanti Zhang PA-C. <Stephy Dutta APRN - Last Filed: 04/19/25 23:53> Related Data Allergies/Adverse reactions: Allergies Allergy/AdvReac Type Severity Reaction Status Date / Time nickel Allergy Rash Verified 04/13/21 22:34 <Shanti Zhang PA-C - Last Filed: 04/19/25 18:00> Review of Systems Review of Systems: All systems reviewed & are unremarkable except as noted in HPI and below <Stephy Dutta APRN - Last Filed: 04/19/25 23:53> PMFSH Past Medical History Medical History: Medical History No significant past medical history <Shanti Zhang PA-C - Last Filed: 04/19/25 18:00> Surgical History Surgical History: Surgical History History of abdominal abscess I & D of Right Lower Abdomen. 04/27/2020 History of shoulder surgery Right <Shanti Zhang PA-C - Last Filed: 04/19/25 18:00> Family History Family History: Family History Father No problems noted. Mother No problems noted. Other Family history of alcoholism Family history of arthritis Hypertension <Shanti Zhang PA-C - Last Filed: 04/19/25 18:00> Social History Social History: Social History Smoking status: Current every day smoker Tobacco type: cigarettes Second hand tobacco smoke exposure: No Alcohol intake: current Substance use: never Gender identity (if verbalized by the patient): Male Sexual Orientation (if Verbalized by the Patient): Straight or Heterosexual <BALTA Tay Last Filed: 04/19/25 18:00> Exam Narrative: GENERAL: Well-appearing, well-nourished, and in no acute distress. HEAD: Normocephalic, atraumatic. CHEST: Clear to auscultation. ?No respiratory distress. : Chaperoned by GHULAM Prabhakar: Area fluctuation to the left inguinal fold extending into the scrotum with surrounding induration and erythema. No crepitus or spontaneous drainage. HEART: Regular rate and rhythm.? NEURO: ?Alert and oriented x3. <Stephy Dutta APRN - Last Filed: 04/19/25 23:53> Course Vital Signs Vital signs: Vital Signs Temperature 36.0 C L 04/19/25 17:53 Pulse Rate 89 04/19/25 17:53 Respiratory Rate 16 04/19/25 17:53 Blood Pressure 132/98 H 04/19/25 17:53 Pulse Oximetry 99 04/19/25 17:53 Oxygen Delivery Room Air 04/19/25 17:53 Temperature 36.0 C L 04/19/25 17:53 Pulse Rate 89 04/19/25 17:53 Respiratory Rate 16 04/19/25 17:53 Blood Pressure 132/98 H 04/19/25 17:53 Pulse Oximetry 99 04/19/25 17:53 Oxygen Delivery Room Air 04/19/25 17:53 <Shanti Zhang PA-C - Last Filed: 04/19/25 18:00> Vital Signs Temperature 36.0 C L 04/19/25 17:53 Pulse Rate 89 04/19/25 17:53 Respiratory Rate 16 04/19/25 17:53 Blood Pressure 132/98 H 04/19/25 17:53 Pulse Oximetry 99 04/19/25 17:53 Oxygen Delivery Room Air 04/19/25 17:53 Temperature 36.0 C L 04/19/25 17:53 Pulse Rate 89 04/19/25 17:53 Respiratory Rate 16 04/19/25 17:53 Blood Pressure 132/98 H 04/19/25 17:53 Pulse Oximetry 99 04/19/25 17:53 Oxygen Delivery Room Air 04/19/25 17:53 <Stephy Dutta APRN - Last Filed: 04/19/25 23:53> Procedures Abscess I/D groin: Date of Incision: 04/19/25 <Stephy Dutta APRN - Last Filed: 04/19/25 23:53> Time of Incision: 23:51 <Stephy Dutta APRN - Last Filed: 04/19/25 23:53> Side (if applicable): left <Stephy Dutta APRN - Last Filed: 04/19/25 23:53> Sedation/analgesia: none <Stephy Dutta APRN - Last Filed: 04/19/25 23:53> Local Anesthetic: lidocaine 1% and with epi <Stephy Dutta APRN - Last Filed: 04/19/25 23:53> Amount of anesthesia used (mL): 6 <Stephy Dutta APRN - Last Filed: 04/19/25 23:53> Technique: incised with #11 blade and probed loculations <Stephy Dutta APRN - Last Filed: 04/19/25 23:53> Amount of fluid expressed (mL): 10 <Stephy Dutta APRN - Last Filed: 04/19/25 23:53> Irrigation: Yes <Stephy Dutta APRN - Last Filed: 04/19/25 23:53> Packing used?: plain <Stephy Dutta APRN - Last Filed: 04/19/25 23:53> I&D Results: Pus and Blood <Stephy Dutta APRN - Last Filed: 04/19/25 23:53> MDM - Male Genitourinary MDM Narrative Medical decision making narrative: 44-year-old male presents emergency department for lump to his left groin he noticed yesterday. He went to his PCP's office and was sent to the ED for further evaluation. He reports the lump is painful and worse with walking. Denies any drainage, dysuria, hematuria, abdominal pain, constipation, obstipation, penile discharge or concern for STDs. Labs Ordered: CBC, CMP, lactic acid, UA Imaging Ordered: CT pelvis with con Medications Ordered: Lidocaine with epinephrine, Bactrim p.o. Results: Patient's CT scan indicates Left scrotal (likely) thick walled abscess measuring 3.7 cm in greatest dimension corresponding to the area of palpable concern. Diagnosis: Left groin abscess Consults: Urology (outpatient) Patient Education/Shared MDM: Results of lab work and imaging shared with patient. Verbal consent was obtained prior to the procedure. The wound was cleaned with Betadine. Lidocaine 1% with epinephrine was used for anesthesia. Wound was explored. He endorses improvement of symptoms following I & D of site. Patient strongly advised to follow-up with urology as soon as possible. He will be discharged home with a prescription for Bactrim and given his first dose here in the ER. Strict return precautions provided. Patient verbalized understanding and is in agreement with plan. Vital signs stable at time of discharge. All questions answered. <Stephy Dutta APRN - Last Filed: 04/19/25 23:53> Differential Diagnosis Differential diagnosis: Likely urinary tract infection, prostatitis and other (Groin abscess) <Stephy Dutta APRN - Last Filed: 04/19/25 23:53> Lab Data Attestation: I reviewed the patient's lab results. <Stephy Dutta APRN - Last Filed: 04/19/25 23:53> Result diagrams: 04/19/25 20:10 04/19/25 20:09 <Shanti Zhang PA-C - Last Filed: 04/19/25 18:00> Labs: Lab Results 04/19/25 04/19/25 Range/Units 20:09 20:10 WBC 12.4 H (4.5-10.0) K/mm3 RBC 5.25 (4.6-6.20) M/mm3 Hgb 16.1 (14.0-18.0) g/dL Hct 47.3 (42.0-52.0) % MCV 90.1 (80-100) fl MCH 30.7 (26-34) pg MCHC 34.0 (32-36) g/dl RDW 12.1 (11.5-14.5) % Plt Count 183 (150-375) k/mm3 MPV 10.0 (7.4-10.4) fl Immature Gran % (Auto) 0.6 H (0-0.5) % Neut % (Auto) 77.0 H (45.5-73.1) % Lymph % (Auto) 10.8 L (18.3-44.2) % [place] % (Auto) 10.0 H (2.6-8.5) % Eos % (Auto) 1.0 (0-4.4) % Baso % (Auto) 0.6 (0.2-1.2) % Lymph # (Auto) 1.34 (0.9-3.2) K/mm3 [place] # (Auto) 1.2 H (0.1-0.6) K/mm3 Eos # (Auto) 0.1 (0-0.3) K/mm3 Baso # (Auto) 0.1 (0.0-0.1) K/mm3 Abs Immat Gran (auto) 0.07 H (0.00-0.031) K/mm3 Absolute Neuts (auto) 9.6 H (1.3-6.7) K/mm3 Absolute Nucleated RBC 0.000 (0.0-0.012) K/mm3 Nucleated RBC % 0.0 (0.0-0.2) % Sodium 133 L (137-145) mmol/L Potassium 4.1 (3.4-5.0) mmol/L Chloride 101 (98-107) mmol/L Carbon Dioxide 24 (22-30) mmol/L Anion Gap 8 (4-12) mmol/L BUN 9 (9-20) mg/dL Creatinine 0.93 (0.7-1.3) mg/dL Estim Creat Clear Calc 83 ml/min Estimated GFR > 60 (59 - ) Glucose 121 H (65-110) mg/dL Lactic Acid 1.3 (0.7-2.0) mmol/L Calcium 9.2 (8.4-10.2) mg/dL Total Bilirubin 1.2 (0.2-1.3) mg/dL AST 38 (17-59) U/L ALT 40 (6-50) U/L Alkaline Phosphatase 61 (38-126) U/L Total Protein 7.7 (6.3-8.2) g/dL Albumin 4.4 (3.5-5.1) g/dL Urine Color Dark yellow (Yellow) Urine Appearance Clear (Clear) Urine pH 6.0 (5.0-9.0) Ur Specific [place] 1.027 (1.001-1.035) Urine Protein 1+ H (Negative) mg/dL Urine Glucose (UA) Negative (Negative) mg/dL Urine Ketones 1+ H (Negative) mg/dL Ur Blood (Man) Negative (Negative) Urine Nitrate Negative (Negative) Urine Bilirubin 2+ H (Negative) Urine Urobilinogen 1.0 (<2.0) mg/dL Add Ur Microanalysis Reviewed Leukocyte Esterase Rfl Trace H (Negative) PERRI/UL Urine RBC 0-2 (0-2) /hpf Urine WBC 0-5 (0-3) /hpf Ur Squamous Epith Cells None seen (Few) /hpf Urine Bacteria None seen /hpf Urine Casts 0-2 Hyaline Casts Present (None) /lpf Urine Mucus Present /lpf <Shanti Zhang PA-C - Last Filed: 04/19/25 18:00> Lab Results 04/19/25 04/19/25 Range/Units 20:09 20:10 WBC 12.4 H (4.5-10.0) K/mm3 RBC 5.25 (4.6-6.20) M/mm3 Hgb 16.1 (14.0-18.0) g/dL Hct 47.3 (42.0-52.0) % MCV 90.1 (80-100) fl MCH 30.7 (26-34) pg MCHC 34.0 (32-36) g/dl RDW 12.1 (11.5-14.5) % Plt Count 183 (150-375) k/mm3 MPV 10.0 (7.4-10.4) fl Immature Gran % (Auto) 0.6 H (0-0.5) % Neut % (Auto) 77.0 H (45.5-73.1) % Lymph % (Auto) 10.8 L (18.3-44.2) % [place] % (Auto) 10.0 H (2.6-8.5) % Eos % (Auto) 1.0 (0-4.4) % Baso % (Auto) 0.6 (0.2-1.2) % Lymph # (Auto) 1.34 (0.9-3.2) K/mm3 [place] # (Auto) 1.2 H (0.1-0.6) K/mm3 Eos # (Auto) 0.1 (0-0.3) K/mm3 Baso # (Auto) 0.1 (0.0-0.1) K/mm3 Abs Immat Gran (auto) 0.07 H (0.00-0.031) K/mm3 Absolute Neuts (auto) 9.6 H (1.3-6.7) K/mm3 Absolute Nucleated RBC 0.000 (0.0-0.012) K/mm3 Nucleated RBC % 0.0 (0.0-0.2) % Sodium 133 L (137-145) mmol/L Potassium 4.1 (3.4-5.0) mmol/L Chloride 101 (98-107) mmol/L Carbon Dioxide 24 (22-30) mmol/L Anion Gap 8 (4-12) mmol/L BUN 9 (9-20) mg/dL Creatinine 0.93 (0.7-1.3) mg/dL Estim Creat Clear Calc 83 ml/min Estimated GFR > 60 (59 - ) Glucose 121 H (65-110) mg/dL Lactic Acid 1.3 (0.7-2.0) mmol/L Calcium 9.2 (8.4-10.2) mg/dL Total Bilirubin 1.2 (0.2-1.3) mg/dL AST 38 (17-59) U/L ALT 40 (6-50) U/L Alkaline Phosphatase 61 (38-126) U/L Total Protein 7.7 (6.3-8.2) g/dL Albumin 4.4 (3.5-5.1) g/dL Urine Color Dark yellow (Yellow) Urine Appearance Clear (Clear) Urine pH 6.0 (5.0-9.0) Ur Specific [place] 1.027 (1.001-1.035) Urine Protein 1+ H (Negative) mg/dL Urine Glucose (UA) Negative (Negative) mg/dL Urine Ketones 1+ H (Negative) mg/dL Ur Blood (Man) Negative (Negative) Urine Nitrate Negative (Negative) Urine Bilirubin 2+ H (Negative) Urine Urobilinogen 1.0 (<2.0) mg/dL Add Ur Microanalysis Reviewed Leukocyte Esterase Rfl Trace H (Negative) PERRI/UL Urine RBC 0-2 (0-2) /hpf Urine WBC 0-5 (0-3) /hpf Ur Squamous Epith Cells None seen (Few) /hpf Urine Bacteria None seen /hpf Urine Casts 0-2 Hyaline Casts Present (None) /lpf Urine Mucus Present /lpf <Stephy Dutta APRN - Last Filed: 04/19/25 23:53> Imaging Data Attestation: I personally reviewed and interpreted this imaging study as follows: <Stephy Dutta APRN - Last Filed: 04/19/25 23:53> Radiologist's impression: Impressions Pelvis CT 04/19/25 22:26 IMPRESSION: Left scrotal (likely) thick walled abscess measuring 3.7 cm in greatest dimension corresponding to the area of palpable concern. <Stephy Dutta APRN - Last Filed: 04/19/25 23:53> Discharge Plan Discharge Clinical Impression: Abscess of groin, left, Left groin pain <Shanti Zhang PA-C - Last Filed: 04/19/25 18:00> Patient Disposition: Home <BALTA Tay Last Filed: 04/19/25 18:00> Condition: Stable <Shanti Zhang PA-C - Last Filed: 04/19/25 18:00> Instructions: Antibiotic Form, Testicle Pain (ED), Abscess Follow-up (ED), Abscess Incision and Drainage (DC) <BALTA Tay Last Filed: 04/19/25 18:00> Additional Instructions: Please return to the ER with any worsening symptoms. Follow-up with Urology as soon as possible. Take all medications as prescribed, including regularly scheduled medications. Complete your full dose of antibiotics. Please remove the packing in 2 days. You may take Tylenol and/or ibuprofen for pain control. <Shanti Zhang PA-C - Last Filed: 04/19/25 18:00> Patient Language: Serbian <Shanti Zhang PA-C - Last Filed: 04/19/25 18:00> Prescriptions: New sulfamethoxazole-trimethoprim [Bactrim DS] 800-160 mg tablet 1 tablet PO Q12H 7 Days Qty: 14 0RF <Shanti Zhang PA-C - Last Filed: 04/19/25 18:00> Follow-up/Referrals: Kim,KEY Rae [Primary Care Provider] - Baudilio Joiner MD [Physician] - (urology) <Shanti Zhang PA-C - Last Filed: 04/19/25 18:00> Time of Disposition: 23:46 <Shanti Zhang PA-C - Last Filed: 04/19/25 18:00> 23:46 <Stephy Dutta APRN - Last Filed: 04/19/25 23:53>
[2025-04-19 20:18] LABS: Hematocrit 47.3 % (42.0-52.0); Hemoglobin 16.1 g/dL (14.0-18.0); Immature Granulocyte Percent A 0.6 % (0-0.5); Lymphocytes Absolute Auto 1.34 K/mm3 (0.9-3.2); Mean Corpuscular HGB Conc 34.0 g/dl (32-36); Mean Corpuscular Hemoglobin 30.7 pg (26-34); Mean Corpuscular Volume 90.1 fl (80-100); Nucleated Red Blood Cells Absolute Auto 0.000 K/mm3 (0.0-0.012); Nucleated Red Blood Cells Perc 0.0 % (0.0-0.2); Platelet Count Result 183 k/mm3 (150-375); Red Blood Count 5.25 M/mm3 (4.6-6.20); White Blood Count 12.4 K/mm3 (4.5-10.0)
[2025-04-19 20:32] LABS: Add Urine Microscopic? YES; Appearance Urine Clear (Clear); Glucose Urine UA Negative (Negative); Leukocyte Esterase Ur Trace LEU/UL (Negative); Need Manual Microscopic Reviewed; Nitrate Urine Negative (Negative); Non Pathogenic Casts 0-2; Specific Grav Ur 1.027 (1.001-1.035)
[2025-04-19 20:40] LABS: Alanine Aminotransferase 40 U/L (6-50); Albumin Level 4.4 g/dL (3.5-5.1); Alkaline Phosphatase 61 U/L (38-126); Anion Gap 8 mmol/L (4-12); Aspartate Amino Transferase 38 U/L (17-59); Bilirubin,Total 1.2 mg/dL (0.2-1.3); Blood Urea Nitrogen 9 mg/dL (9-20); Calcium 9.2 mg/dL (8.4-10.2); Carbon Dioxide 24 mmol/L (22-30); Chloride 101 mmol/L (98-107); Estimated CRCL calculation 83 ml/min; Estimated Glomerular Filt Rate > 60; Glucose 121 mg/dL (65-110); Potassium 4.1 mmol/L (3.4-5.0); Sodium 133 mmol/L (137-145); Total Protein 7.7 g/dL (6.3-8.2)
--- NOTE | 2025-04-19 20:59 | PC.NURSE ---
pt to ct at this time. nad noted.
[2025-04-19] MEDS: LIDO 1%/EPINEPHRINE 1:100,000 20 ML VIAL 10 ML INFILTRATE (23:44)
[2025-04-19] MEDS: SULFAMETHOXAZOLE/TRIMETHOPRIM 800/160 MG DS TABLET 1 TAB PO (23:59)
== END 2025-04-20 | disposition home or self-care (01) ==
PROVIDERS: Physician Assistant; Emergency Provider Registered Nurse; PCP Registered Nurse
DX: L02.214 Cutaneous abscess of groin (principal); F17.210 Nicotine dependence, cigarettes, uncomplicated
CPT/HCPCS: 10061; 36415; 72193; 80053; 81001; 83605; 85025; 99284; A9270; J2004; Q9967